=== PATIENT | female | born 1950 | race Caucasian/White ===

== ENCOUNTER 2017-02-02 17:15 | Emergency (ER) | payer SELFPAY | END 2017-02-02 19:49 | disposition left against medical advice (07) | LOC: ED 17:15 | DX: I63.9 Cerebral infarction, unspecified (principal); Z53.21 Procedure and treatment not carried out due to patient leaving prior to being seen by health care provider | CPT/HCPCS: 82962 ==

== ENCOUNTER 2017-02-02 17:16 | Emergency (ER) | payer MEDICAID ==
[2017-02-02] MEDS ORDERED: ATIVAN ONE (17:17)
[2017-02-02] MEDS ORDERED: ATIVAN IV ONE (17:22)
[2017-02-02] MEDS ORDERED: CARDENE 50 MG in NACL 0.9% 250ML 230 ML IV SCH ×2 (17:36→18:00)
[2017-02-02] MEDS ORDERED: KEPPRA 1,000 MG/NS 0.75% 100ML 1,000 MG/100 ML BAG IV ONE (17:41)
--- NOTE | 2017-02-02 17:42 | Cat Scan Report ---
FINAL REPORT EXAM: CT HEAD/BRAIN WO CON HISTORY: neuro deficits \T\lt; 6hrs or sx present upon awakening TECHNIQUE: Noncontrast CT axial images of the brain. PRIORS: None. FINDINGS: Diffuse, bilateral subarachnoid hemorrhage noted in bilateral sylvian fissures, suprasellar and interpeduncular cisterns and also 4th ventricle. Mild mass effect, including partial effacement of overlying cortical sulci and basilar cisterns. No apparent parenchymal mass, hemorrhage, midline shift or hydrocephalus. No evidence of acute cortical infarct. No other abnormal extra-axial fluid or air collection. Osseous calvarium grossly intact. Mucosal thickening and opacification of the right maxillary sinus. IMPRESSION: 1. Diffuse, bilateral subarachnoid hemorrhage, with mild mass effect as reported. 2. Right maxillary sinus disease. Dr. Flowers discussed results with Dr. Major on 02 February 2017 at approximately 1731 hours EST.
[2017-02-02] MEDS ORDERED: AMIDATE IV ONE (17:45)
[2017-02-02] MEDS ORDERED: XYLOCAINE CARDIAC IV ONE (17:45)
[2017-02-02] MEDS ORDERED: QUELICIN ONE (17:45)
[2017-02-02] MEDS ORDERED: VERSED IV ONE (17:45)
--- NOTE | 2017-02-02 17:51 | Emergency Department Report ---
HPI - General Chief Complaint: Neuro Symptoms/Deficit Time Seen by Provider: 02/02/17 17:22 - HPI HPI: Room 21 The patient is a 66-year-old female presenting with a chief complaint seizure/ altered mental status. EMS states he received a call for seizure and upon their arrival to the home the patient was found on her bed unresponsive. The patient began to become combative during transport. Upon arrival to the ED the patient was nonverbal but combative. Patient required Ativan 2 mg IV in order to get the CT scan. Initially there was question as to whether or not the patient had an established history of seizures or this is no unresponsive. There are no family members present. Subsequently decided to intubate the patient for airway protection Location: Central nervous system Duration: [see above] Quality: Combative Severity: Severe Modifying factors: [see above] Context: [see above] Mode of transportation: EMS ED Past Medical Hx - Past Medical History Hx Hypertension: Yes Hx Diabetes: Yes Additional medical history: darian - Surgical History Additional Surgical History: darian - Family History Family history: no significant - Social History Smoking Status: Unknown if ever smoked ED Review of Systems ROS: Stated complaint: CVA Other details as noted in HPI Comment: Unobtainable due to pts medical conditions Physical Exam - Physical Exam Vital Signs: Vital Signs 02/02/17 17:34 Pulse Rate 86 Respiratory 30 H Rate Blood Pressure 237/91 [Left] O2 Sat by Pulse 98 Oximetry Physical Exam: GENERAL: The patient is well-developed well-nourished female lying on stretcher slightly combative with arms requiring physical restraint by staff. [] HEENT: Normocephalic. Atraumatic. Pupils 3 mm bilaterally NECK: Trachea midline CHEST/LUNGS: Clear to auscultation. There is no respiratory distress noted. HEART/CARDIOVASCULAR: Regular. There is no tachycardia. Patient is hypertensive ABDOMEN: There is no abdominal distention. SKIN: There is no rash. There is no edema. There is no diaphoresis. NEURO: The patient is combative using bilateral upper extremities to wrestle with staff. Patient is nonverbal. GCS 7 MUSCULOSKELETAL: There is no evidence of acute injury. ED Course Vital Signs 02/02/17 17:34 Pulse Rate 86 Respiratory 30 H Rate Blood Pressure 237/91 [Left] O2 Sat by Pulse 98 Oximetry - Consultations Consultation #1: 02/02/17 17:51 [place] transfer line called 02/02/17 17:53 Case discussed with [place] neurosurgeon Dr. Menjivar- recommends administering aminocaproic acid 5 g, agrees with Fady to keep systolic less than 150 and to fly the patient to [facility]. Accepts the patient in transfer - Intubation Time Out Performed: No (emergency situation) Sedative: Etomidate Mg Given: 20 Paralytic: Succinylcholine Mg Given: 100 Laryngoscope: Sonny Size: 3 ET Tube Size: 7 Tube Secured Depth (cm): 20 Tube Secured Location: lips Tube Placement Confirmation: visualized tube passing t, equal breath sounds bilat, confirmation by capnometr Patient Tolerated Procedure: well Intubation Complications: none Additional Comments: Patient was administered lidocaine 100 mg IV during RSI ED Medical Decision Making - Lab Data Result diagrams: 02/02/17 Unknown 02/02/17 Unknown Laboratory Tests 02/02/17 02/02/17 02/02/17 18:34 Unknown Unknown WBC 6.4 RBC 4.31 Hgb 13.0 Hct 39.1 MCV 91 MCH 30 MCHC 33 RDW 13.5 Plt Count 246 Lymph % (Auto) 48.7 H [place] % (Auto) 5.4 Eos % (Auto) 1.4 Baso % (Auto) 0.9 Lymph # 3.1 [place] # 0.3 Eos # 0.1 Baso # 0.1 Seg Neutrophils % 43.6 Seg Neutrophils # 2.8 PT 14.2 INR 1.05 APTT < 20.0 L Thrombin Time Sodium 141 Potassium 4.2 Chloride 101.2 Carbon Dioxide 26 Anion Gap 18 BUN 19 H Creatinine 1.3 H Estimated GFR 41 BUN/Creatinine Ratio 14.61 Glucose 195 H Calcium 9.2 Troponin T 02/02/17 02/02/17 Unknown Unknown WBC RBC Hgb Hct MCV MCH MCHC RDW Plt Count Lymph % (Auto) [place] % (Auto) Eos % (Auto) Baso % (Auto) Lymph # [place] # Eos # Baso # Seg Neutrophils % Seg Neutrophils # PT INR APTT Thrombin Time 16.6 Sodium TNR Potassium TNR Chloride TNR Carbon Dioxide TNR Anion Gap TNR BUN TNR Creatinine TNR Estimated GFR TNR BUN/Creatinine Ratio TNR Glucose TNR Calcium TNR Troponin T TNR - Radiology Data Radiology results: report reviewed (CT head), image reviewed (CT head, chest x- ray) interpreted by me: Chest x-ray-ET tube in place. No pneumothorax CT head (read by radiologist)-diffuse bilateral subarachnoid hemorrhage with mild mass effect. - Differential Diagnosis ICH, CVA, seizure Critical Care Time: Yes Critical care time in (mins) excluding proc time.: 65 Critical care attestation.: If time is entered above; I have spent that time in minutes in the direct care of this critically ill patient, excluding procedure time. ED Disposition Clinical Impression: Acute spont subarachnoid intracranial hemorrhage assoc w/ hypertension, Hypertensive emergency, Altered mental status, Seizure Disposition: [id number]/TX-[id number] ANOTHER TYPE HLTHCARE Is pt being admited?: No Does the pt Need Aspirin: No Condition: Serious Instructions: Hypertension (ED) Referrals: PRIMARY CARE, [Primary Care Provider] - 3-5 Days Time of Disposition: 18:05 (awaiting transport)
[2017-02-02] MEDS ORDERED: AMICAR 5,000 MG in NACL 0.9% 100 ML IV ONE (18:03)
[2017-02-02 18:05] LABS: Basophils % (Auto) 0.9 % (0.0-1.8); Eosinophils % (Auto) 1.4 % (0.0-4.3); Hematocrit 39.1 % (30.3-42.9); Mean Corpuscular HGB Conc 33 % (30-34); Mean Corpuscular Hemoglobin 30 pg (28-32); Mean Corpuscular Volume 91 fl (79-97); Red Blood Count 4.31 M/mm3 (3.65-5.03); Red Cell Distribution Width 13.5 % (13.2-15.2); White Blood Count 6.4 K/mm3 (4.5-11.0)
[2017-02-02] MEDS ORDERED: ARTIFICIAL TEARS OPHTH OINT OU PRN (18:06)
[2017-02-02] MEDS ORDERED: VASELINE LIP THERAPY TP PRN (18:06)
[2017-02-02 18:15] LABS: Platelet Count 246 K/mm3 (140-440)
[2017-02-02 18:23] LABS: INR 1.05 (0.87-1.13)
[2017-02-02 18:25] LABS: Anion Gap TNR mmol/L; Carbon Dioxide TNR mmol/L (22-30); Chloride TNR mmol/L (98-107); Potassium TNR mmol/L (3.6-5.0); Sodium TNR mmol/L (137-145)
[2017-02-02 18:27] LABS: BUN/Creatinine Ratio TNR; Blood Urea Nitrogen TNR mg/dL (7-17)
[2017-02-02 18:28] LABS: Calcium TNR mg/dL (8.4-10.2); Glucose TNR mg/dL (65-100)
[2017-02-02 18:29] LABS: Partial Thromboplastin Time < 20.0 Sec. (24.2-36.6)
--- NOTE | 2017-02-02 18:53 | XRay Report ---
FINAL REPORT PROCEDURE: XR CHEST 1V AP TECHNIQUE: Chest radiograph anteroposterior view. CPT 48168 HISTORY: status post intubation COMPARISON: No prior studies are available for comparison. FINDINGS: Endotracheal tube terminates 3.6 cm above the sreedhar. Patient is kyphotic in positioning. Probable CHF is present. Mild hypoventilatory changes and possible mild pulmonary edema are suggested. Small pleural effusions are not excluded. Left retrocardiac region is not well visualized which may be due to small pleural effusion and atelectasis but pneumonia is not excluded. IMPRESSION: Endotracheal tube terminates 3.6 cm above the sreedhar. CHF is suspected with small left pleural effusion. Likely hypoventilatory changes and possible pulmonary edema are seen in the lungs. Left lower lobe pneumonia is not excluded.
[2017-02-02] MEDS ORDERED: MIDAZOLAM 100 MG in NACL 0.9% 80 ML IV SCH (19:00)
[2017-02-02 19:05] LABS: BUN/Creatinine Ratio 14.61; Calcium 9.2 mg/dL (8.4-10.2); Chloride 101.2 mmol/L (98-107); Potassium 4.2 mmol/L (3.6-5.0)
[2017-02-02 20:06] VITALS: BP 120/51
== END 2017-02-02 19:35 | disposition other institution (70) ==
LOC: ED 17:16
DX: I60.6 Nontraumatic subarachnoid hemorrhage from other intracranial arteries (principal); I10 Essential (primary) hypertension; R41.82 Altered mental status, unspecified; R56.9 Unspecified convulsions; E11.9 Type 2 diabetes mellitus without complications
CPT/HCPCS: 31500; 36415; 70450; 71010; 80048; 85025; 85610; 85670; 85730; 93005; 93010; 96365; 96368; 96375; 99291; J0330; J1953; J2001; J2060; J2250; J7050; 94002